=== PATIENT | male | born 1980 | race African-American/Black ===

== ENCOUNTER 2017-04-19 20:50 | Emergency (ER) | payer SELFPAY ==
[~2017-04-19] VITALS: Ht 177.8 cm; Wt 93.4 kg
--- NOTE | 2017-04-19 21:26 | PHYS DOC ---
Past Medical History Past Medical History: Asthma, High Cholesterol Past Surgical History: Other Additional Past Surgical Histo: teeth Alcohol Use: Occasionally Drug Use: None Adult General Chief Complaint Chief Complaint: CHEST PAIN HPI HPI 36-year-old male who's having significant chest tightness for the last several days. Patient states he ran a 5K on Tuesday and then developed chest tightness on Tuesday. He denies any significant chest pain. He does state he feels mildly dizziness and lightheadedness when he ambulates. He does state he has has hypercholesterolemia but denies any other health problems. His at bedside is a cardiac nurse and states she's been taking his blood pressure at home and says it has been mildly elevated and running at 140-150's systolic throughout the last several weeks. He currently does not take any medications for high blood pressure. Upon my initial assessment, the patient is in no acute distress and saturating near 100% on room air. He is nontoxic and afebrile in appearance. Review of Systems Review of Systems Constitutional: Denies fever or chills [] Eyes: Denies change in visual acuity, redness, or eye pain [] HENT: Denies nasal congestion or sore throat [] Respiratory: Denies cough or shortness of breath [] Cardiovascular: No additional information not addressed in HPI [] GI: Denies abdominal pain, nausea, vomiting, bloody stools or diarrhea [] : Denies dysuria or hematuria [] Musculoskeletal: Denies back pain or joint pain [] Integument: Denies rash or skin lesions [] Neurologic: Denies headache, focal weakness or sensory changes [] Endocrine: Denies polyuria or polydipsia [] Current Medications Current Medications Current Medications Medications (Trade) Dose Ordered Sig/[facility] Start Time Stop Time Status Last Admin Dose Admin Albuterol/ Ipratropium (Duoneb) 3 ml 1X ONCE 04/19/17 21:30 04/19/17 21:31 DC 04/19/17 22:42 3 ML Aspirin (Naresh Aspirin) 325 mg 1X ONCE 04/19/17 21:30 04/19/17 21:31 DC Aspirin (Children'S Aspirin) 324 mg 1X ONCE 04/19/17 21:30 04/19/17 21:31 DC 04/19/17 21:30 324 MG Allergies Allergies Allergies Coded Allergies Type Severity Reaction Last Updated Verified No Known Drug Allergies 04/19/17 No Physical Exam Physical Exam Constitutional: Well developed, well nourished, no acute distress, non-toxic appearance. [] HENT: Normocephalic, atraumatic, bilateral external ears normal, oropharynx moist, no oral exudates, nose normal. [] Eyes: PERRLA, EOMI, conjunctiva normal, no discharge. [] Neck: Normal range of motion, no tenderness, supple, no stridor. [] Cardiovascular:Heart rate regular rhythm, no murmur [] Lungs & Thorax: Bilateral breath sounds clear to auscultation [] Abdomen: Bowel sounds normal, soft, no tenderness, no masses, no pulsatile masses. [] Skin: Warm, dry, no erythema, no rash. [] Back: No tenderness, no CVA tenderness. [] Extremities: No tenderness, no cyanosis, no clubbing, ROM intact, no edema. [] Neurologic: Alert and oriented X 3, normal motor function, normal sensory function, no focal deficits noted. [] Psychologic: Affect normal, judgement normal, mood normal. [] Current Patient Data Vital Signs Vital Signs Date Time Temp Pulse Resp B/P (MAP) Pulse Ox O2 Delivery O2 Flow Rate FiO2 04/19/17 22:45 96 Room Air 04/19/17 20:55 98.2 77 23 148/89 (108) 98.2 Lab Values Laboratory Tests Test 04/19/17 21:00 White Blood Count 10.4 x10^3/uL (4.0-11.0) Red Blood Count 5.27 x10^6/uL (4.30-5.70) Hemoglobin 15.7 g/dL (13.0-17.5) Hematocrit 46.9 % (39.0-53.0) Mean Corpuscular Volume 89 fL (79-100) Mean Corpuscular Hemoglobin 30 pg (25-35) Mean Corpuscular Hemoglobin Concent 34 g/dL (31-37) Red Cell Distribution Width 13.3 % (11.5-14.5) Platelet Count 228 x10^3/uL (140-400) Neutrophils (%) (Auto) 57 % (31-73) Lymphocytes (%) (Auto) 35 % (24-48) Monocytes (%) (Auto) 7 % (0-9) Eosinophils (%) (Auto) 2 % (0-3) Basophils (%) (Auto) 0 % (0-3) Neutrophils # (Auto) 5.9 x10^3uL (1.8-7.7) Lymphocytes # (Auto) 3.6 x10^3/uL (1.0-4.8) Monocytes # (Auto) 0.7 x10^3/uL (0.0-1.1) Eosinophils # (Auto) 0.2 x10^3/uL (0.0-0.7) Basophils # (Auto) 0.0 x10^3/uL (0.0-0.2) Sodium Level 139 mmol/L (136-145) Potassium Level 3.8 mmol/L (3.5-5.1) Chloride Level 101 mmol/L (98-107) Carbon Dioxide Level 31 mmol/L (21-32) Anion Gap 7 (6-14) Blood Urea Nitrogen 15 mg/dL (8-26) Creatinine 1.0 mg/dL (0.7-1.3) Estimated GFR (Cockcroft-Gault) 101.2 Glucose Level 85 mg/dL (70-99) Calcium Level 9.4 mg/dL (8.5-10.1) Troponin I Quantitative < 0.017 ng/mL (0.000-0.055) Laboratory Tests 04/19/17 21:00 Laboratory Tests 04/19/17 21:00 EKG EKG EKG as interpreted by me shows a normal sinus rhythm with rate of 72 beats per minute. There is no acute injury pattern. There is a T-wave inversion noted to lead 3 but no other findings are seen. There is an incomplete right bundle- branch block. Intervals are normal. Radiology/Procedures Radiology/Procedures One view of the chest as interpreted by me does not reveal an acute cardiopulmonary process. Course & Med Decision Making Course & Med Decision Making Pertinent Labs and Imaging studies reviewed. (See chart for details) 36-year-old male who's having significant chest tightness for the last several days will be given a DuoNeb and a full 325 mg aspirin. Laboratory workup including cardiac set of cardiac enzymes will be given. I deemed the patient to be low risk for cardiac disease. His lab work is normal he will be safe to be discharged to follow closely with his primary care doctor in the next several days. I discussed the need for him to follow-up and have his blood pressure reevaluated as well as he is likely needing an oral agent. While on the monitor bolus the patient appears to have an occasional PVC. Patient will be ambulated on the monitor for any changes and to make sure he is not symptomatic. If he is not symptomatically with ambulation he'll be discharged with instruction to follow with his primary care doctor. I instructed the patient and family that he likely needs Holter monitor as well as an oral agent for blood pressure. His states he'll be able to follow closely in the next several days for these things. Laboratory workup has been negative including a set of cardiac enzymes. My reassessment, the patient feels significantly improved. A DuoNeb was marginally effective. He had good peak flows prior to DuoNeb. Pt was successfully ambulated around the department without difficulty. Pt was given follow up instructions. Return precautions were provided and acknowledged by the patient. Dragon Disclaimer Dragon Disclaimer This electronic medical record was generated, in whole or in part, using a voice recognition dictation system. Departure Departure Impression: Primary Impression: Chest pain Additional Impression: Elevated blood pressure reading Disposition: HOME, SELF-CARE Admitting Physician: Other Condition: STABLE Patient Instructions: Holter Monitoring, Managing Your High Blood Pressure Additional Instructions: Please follow up with your primary doctor in the next several days to have your blood pressure rechecked and to obtain a holter monitor. Return to the ER immediately if you develop any worsening of your chest tightness or if you develop any new symptoms such as shortness of breath. Problem Qualifiers BARON PHAN DO April 19, 2017 21:26
[2017-04-19 21:28] LABS: BASO % 0 % (0-3); EOS % 2 % (0-3); HEMATOCRIT 46.9 % (39.0-53.0); HEMOGLOBIN 15.7 g/dL (13.0-17.5); LYMPH # 3.6 x10^3/uL (1.0-4.8); LYMPH % 35 % (24-48); MEAN CORPUSCULAR HEMOGLOBIN 30 pg (25-35); MEAN CORPUSCULAR HGB CONC 34 g/dL (31-37); MEAN CORPUSCULAR VOLUME 89 fL (79-100); MONO % 7 % (0-9); NEUT % 57 % (31-73); PLATELET COUNT 228 x10^3/uL (140-400); RED BLOOD COUNT 5.27 x10^6/uL (4.30-5.70); RED CELL DISTRIBUTION WIDTH 13.3 % (11.5-14.5); WHITE BLOOD COUNT 10.4 x10^3/uL (4.0-11.0)
[2017-04-19] MEDS ORDERED: IPRATRPIUM/ALBUTEROL 0.5/2.5MG 3 ML NEBU. NEB ONE (21:30)
[2017-04-19] MEDS ORDERED: ASPIRIN CHEWABLE 81 MG TABLET. PO ONE (21:30)
[2017-04-19] MEDS ORDERED: ASPIRIN 325 MG TABLET PO ONE (21:30)
[2017-04-19 21:50] LABS: CALCIUM 9.4 mg/dL (8.5-10.1); GFR 101.2; POTASSIUM 3.8 mmol/L (3.5-5.1)
[2017-04-19 23:30] VITALS: BP 148/62
--- NOTE | 2017-04-20 06:24 | EKG ---
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
--- NOTE | 2017-04-20 07:44 | RAD ---
Portable chest, 04/19/2017: History: Chest pain The heart size and pulmonary vascularity are normal. The lungs are clear. There is no evidence of pleural fluid. IMPRESSION: No acute cardiopulmonary abnormality is detected.
== END 2017-04-19 23:50 | disposition home or self-care (01) ==
LOC: ER 20:50
DX: R07.89 Other chest pain (principal); R03.0 Elevated blood-pressure reading, without diagnosis of hypertension; R42 Dizziness and giddiness; J45.909 Unspecified asthma, uncomplicated; E78.00 Pure hypercholesterolemia, unspecified; Z79.82 Long term (current) use of aspirin
CPT/HCPCS: 36415; 71010; 80048; 84484; 85027; 93005; 94250; 94640; 99285; J7620